=== PATIENT | female | born 1945 | race Caucasian/White ===

== ENCOUNTER → 2022-04-08 15:01 | Outpatient (BNVA) | payer MEDICARE, SELFPAY | PROVIDERS: Referring Provider Registered Nurse; Visit Provider Specialist | DX: M25.562 Pain in left knee (principal) | CPT/HCPCS: 73560; 73565; 99204 ==

== ENCOUNTER 2023-06-04 12:01 | Emergency (ER) | payer MEDICARE, SELFPAY ==
[2023-06-04 12:02] VITALS: BP 191/76; PULSE 64; RESP 17; TEMP 36.8; O2SAT 99
--- NOTE | 2023-06-04 12:06 | XR_ITS ---
WS: [id number] Portable AP upright chest, 06/04/2023 Clinical Data: Chest pain Comparison: None. Findings: No nodules, masses or effusions are seen. The heart is enlarged. The pulmonary vascularity is not increased. No pneumonia or pneumothorax is seen. There are monitor leads on the chest wall. Impression: Cardiomegaly.
--- NOTE | 2023-06-04 12:07 | ECG_ITS ---
[facility] Test Date: 2023-06-04 Pat Name: Elba Fowler Department: Room: Gender: Female Vocational Services Specialist: : 1945 Requested By: Ivet Amezcua Order Number: [id number] Juan M MD: Inocencio Gonzalez M.D. Measurements Intervals [place] Rate: 59 P: -36 [place]: 199 QRS: 150 QRSD: 92 T: 59 QT: 421 QTc: 419 Interpretive Statements SINUS BRADYCARDIA PATTERN CONSISTENT WITH PULMONARY DISEASE INCOMPLETE RIGHT BUNDLE BRANCH BLOCK [90+ ms QRS DURATION, TERMINAL R IN V1/V2, 40+ ms S IN I/aVL/V4/V5/V6] POSSIBLE RIGHT VENTRICULAR HYPERTROPHY [SOME/ALL OF: PROMINENT R IN V1, LATE TRANSITION, RAD, IVAN, SSS] No previous ECG available for comparison Electronically Signed On 06-04-2023 17:00:21 CDT by Inocencio Gonzalez M.D. [id number] f
--- NOTE | 2023-06-04 12:16 | ED_ITS ---
HPI - Chest Pain 2 General: Chief Complaint: Chest Pain Stated Complaint: chest pain Time Seen by Provider: 06/04/23 12:05 History of Present Illness: 77-year-old female with a history of hyp ertension, hyperlipidemia and anxiety who presents to the emergency room with chest pain/tightness. She says it started this morning. She was fairly hypertensive according to EMS. She had taken a clonidine at home and then received a couple of nitro on the ambulance. She describes a pressure in her left chest and under her left breast centrally. No cough. No lower extremity swelling. No shortness of breath. No altered mental status. No focal motor deficits. No abdominal pain. No nausea or vomiting. Review of Systems 2 Narrative: Constitutional symptoms: Negative except as documented in HPI. Skin symptoms: Negative except as documented in HPI. Eye symptoms: Negative except as documented in HPI. ENMT symptoms: Negative except as documented in HPI. Respiratory symptoms: Negative except as documented in HPI. Cardiovascular symptoms: Negative except as documented in HPI. Gastrointestinal symptoms: Negative except as documented in HPI. Genitourinary symptoms: Negative except as documented in HPI. Musculoskeletal symptoms: Negative except as documented in HPI. Neurologic symptoms: Negative except as documented in HPI. Psychiatric symptoms: Negative except as documented in HPI. Endocrine symptoms: Negative except as documented in HPI. Physical Exam 2 Narrative: EXAM NARRATIVE: General: Alert, no acute distress. Skin: Warm, dry. Head: Normocephalic, atraumatic. Neck: Supple, trachea midline. Eye: Extraocular movements are intact. Ears, nose, mouth and throat: mucosa moist. Cardiovascular: Regular, Normal peripheral perfusion. Respiratory: Lungs are clear to auscultation, respirations are non-labored, breath sounds are equal, Symmetrical chest wall expansion. Gastrointestinal: Soft, Nontender, Non distended, Normal bowel sounds. Musculoskeletal: Normal ROM, no deformity. Neurological: Alert and oriented, No focal neurological deficit observed. Psychiatric: Cooperative, appropriate mood & affect. Course 2 Vital Signs: Vital signs: Vital Signs Temperature 98.2 F 06/04/23 12:02 Pulse Rate 64 06/04/23 12:02 Respiratory Rate 17 06/04/23 12:02 Blood Pressure 191/76 06/04/23 12:02 Pulse Oximetry 99 06/04/23 12:02 Oxygen Delivery Me thod Room Air 06/04/23 12:02 MDM - Chest Pain Medical Decision Making Differential diagnosis for patient with chest pain includes but is not limited to and based on the above HPI, review of systems and physical exam: Pneumonia. unstable angina. angina. Acute coronary syndrome / NH. Pulmonary embolism. Costochondritis / musculoskeletal. Pleurisy. Pericarditis. Esophageal spasm. Pancreatis. Cholecystitis. Workup: Lab work, chest X-ray and EKG ordered to evaluate, rule in and rule out above pathologies. Lab work is unremarkable. Serial cardiac markers are negative. Lab Review: Laboratory results were reviewed and interpreted by myself the emergency room physician. EKG: time 1207 am. rate 59 Sinus bradycardia, No ST-T changes, no ectopy, normal AK & QRS intervals, This was reviewed and interpreted by myself the ER physician at 1210 pm. EKG: Time 1439 PM rate 60. Heart rate has increased by 1 bpm. Normal sinus rhythm, No ST-T changes, no ectopy, normal AK & QRS intervals, This was reviewed and interpreted by myself the ER physician at 1445 PM. Chest x-ray: No acute process. No infiltrate. No pneumothorax. cardiomegaly. This was reviewed and interpreted by myself the ER physician. HEART Pathway for Early Discharge in Acute Chest Pain from [employer] on 06/04/2023 All calculations should be rechecked by clinician prior to use RESULT SUMMARY: 3 points HEART Pathway Score Low risk 0.9-1.7% 30-day MACE Repeat troponin at 3 hours and if negative, discharge home with outpatient follow-up. INPUTS: History ?> 0 = Slightly suspicious EKG ?> 0 = Normal Age ?> 2 = >=5 Risk factors ?> 1 = 1-2 risk factors Initial troponin ?> 0 = <=ormal limit Reexamination: Patient remained stable. She is now chest pain-free. No increased work of breathing. No altered mental status. Lab Data 06/04/23 12:13 06/04/23 12:13 Laboratory Results WBC 7.55 10^3/uL (3.29-11.43) 06/04/23 12:13 RBC 5.00 10^6/uL (3.85-5.65) 06/04/23 12:13 Hgb 14.60 g/dL (11.27-16.99) 06/04/23 12:13 Hct 44.7 % (36-47) 06/04/23 12:13 MCV 89.4 fl (85-98) 06/04/23 12:13 MCH 29.2 pg (27-33) 06/04/23 12:13 MCHC 32.7 g/dL (30-55) 06/04/23 12:13 RDW 14.3 % (12.1-15.1) 06/04/23 12:13 Plt Count 244 10^3/cmm (157-399) 06/04/23 12:13 MPV 9.7 fL (7.4-10.4) 06/04/23 12:13 Neut % (Auto) 66.8 % 06/04/23 12:13 Lymph % (Auto) 24.4 % 06/04/23 12:13 [place] % (Auto) 6.8 % 06/04/23 12:13 Eos % (Auto) 1.2 % 06/04/23 12:13 Baso % (Auto) 0.5 % 06/04/23 12:13 Neut # (Auto) 5.05 10^3/uL (1.8-7.7) 06/04/23 12:13 Lymph # (Auto) 1.8 10^3/uL (0.8-4.8) 06/04/23 12:13 [place] # (Auto) 0.5 10^3/uL (0.2-0.9) 06/04/23 12:13 Eos # (Auto) 0.1 10^3/uL (0.0-0.8) 06/04/23 12:13 Baso # (Auto) 0.0 10^3/uL (0.0-0.1) 06/04/23 12:13 Nucleated RBC % (auto) 0 % 06/04/23 12:13 Nucleated RBCs # 0.0 /100WBC 06/04/23 12:13 Sodium 139 mmol/L (136-145) 06/04/23 12:13 Potassium 4.1 mmol/L (3.5-5.1) 06/04/23 12:13 Chloride 105 mmol/L (98-107) 06/04/23 12:13 Carbon Dioxide 25 mmol/L (22-29) 06/04/23 12:13 Anion Gap 13.1 (5-19) 06/04/23 12:13 BUN 17 mg/dL (8-23) 06/04/23 12:13 Creatinine 0.3 mg/dL (0.5-0.9) L 06/04/23 12:13 GFR Calculation Not Reportable 06/04/23 12:13 Glucose 104 mg/dL (65-115) 06/04/23 12:13 Calculated Osmolality 290 mOsm/kg (285-295) 06/04/23 12:13 Calcium 9.7 mg/dL (8.5-10.5) 06/04/23 12:13 Total Bilirubin 0.5 mg/dL (0.15-1.2) 06/04/23 12:13 AST 17 U/L (0-32) 06/04/23 12:13 ALT 18 U/L (0-33) 06/04/23 12:13 Alkaline Phosphatase 72 U/L (35-105) 06/04/23 12:13 Troponin T Baseline 7 ng/L (0-10) 06/04/23 12:13 Troponin T 120 Minute 8.15 ng/L (0-10) 06/04/23 14:29 Delta Troponin T 1.15 ABS# (0-10) 06/04/23 14:29 Total Protein 6.3 g/dL (6.6-8.7) L 06/04/23 12:13 Albumin 4.2 g/dL (3.5-5.2) 06/04/23 12:13 Globulin 2.1 g/dL (1.3-4.6) 06/04/23 12:13 All radiology interpretation(s) finalized by discharge Other Data Assessment and plan: Accelerated hypertension Noncardiac chest pain - Discharged home - Discussed findings and plan with patient. Answered any questions. - All laboratory values were reviewed and interpreted personally by myself, the ER physician - All imaging was reviewed and interpreted personally by myself, the ER physician. - Evaluation and treatment of this problem were appropriate in the emergency setting Discharge Plan Discharge Patient Disposition: Home Clinical Impression: Atypical chest pain, Hypertension Condition: Stable Prescriptions: No Action alprazolam 0.25 mg tablet 0.25 mg PO DAILY PRN (Reason: Anxiety) atorvastatin 10 mg tablet 10 mg PO DAILY clonidine HCl 0.1 mg tablet 0.05 mg PO TID hydrochlorothiazide 25 mg tablet 25 mg PO DAILY lisinopril 40 mg tablet 40 mg PO DAILY hydralazine 25 mg tablet 25 mg PO TID triamcinolone acetonide 0.1 % cream 1 applic TOPICAL BID PRN (Reason: Skin Irritation) Miralax 17 gram/dose Powder See Rx Instructions .ROUTE .COMPLEX Rx Instructions: Mix 1 capful (17 g) in 8 ounces fluid and drink entire liquid daily as needed. Discharge Orders: Discharge ED (Routine); Ordered 06/04/23 Ordered By: Ivet France Referrals: KIM Baer, BIODIESEL OPERATIONS MANAGER [Primary Care Provider] - 4-7 days (You have been screened and evaluated and felt safe for discharge. Health conditions do change or evolve sometimes and as such it is important that you follow up with your Primary Doctor to be re checked, 3-5 days is a general good time frame for follow up. You are always welcome to return to the ED for re assessment if your symptoms are worsening or you have new concerns) Discharge Diet: Usual diet Discharge Activity: Resume usual activity Patient Instructions: Noncardiac Chest Pain (ED), Opioid Safety, Pain Management Coding Level of Care Code ED Clinical Operations Manager for Edwin Yepez
[2023-06-04 12:26] LABS: Basophils % 0.5 %; Eosinophils # 0.1 10^3/uL (0.0-0.8); Eosinophils % 1.2 %; Hematocrit 44.7 % (36-47); Lymphocytes # 1.8 10^3/uL (0.8-4.8); Lymphocytes % 24.4 %; Mean Corpuscular HGB Conc 32.7 g/dL (30-55); Mean Corpuscular Hemoglobin 29.2 pg (27-33); Mean Corpuscular Volume 89.4 fl (85-98); Mean Platelet Volume 9.7 fL (7.4-10.4); Monocytes # 0.5 10^3/uL (0.2-0.9); Monocytes % 6.8 %; Neutrophils # 5.05 10^3/uL (1.8-7.7); Neutrophils % 66.8 %; Nucleated Red Blood Cells % 0 %; Platelet Count 244 10^3/cmm (157-399); Red Cell Distribution Width 14.3 % (12.1-15.1); White Blood Count 7.55 10^3/uL (3.29-11.43)
[2023-06-04 12:44] LABS: Alanine Aminotransferase 18 U/L (0-33); Albumin Level 4.2 g/dL (3.5-5.2); Alkaline Phosphatase 72 U/L (35-105); Anion Gap 13.1 (5-19); Aspartate Amino Transferase 17 U/L (0-32); Blood Urea Nitrogen 17 mg/dL (8-23); Calcium 9.7 mg/dL (8.5-10.5); Carbon Dioxide 25 mmol/L (22-29); Chloride 105 mmol/L (98-107); Globulin 2.1 g/dL (1.3-4.6); Glucose 104 mg/dL (65-115); Osmolality Calculated 290 mOsm/kg (285-295); Potassium 4.1 mmol/L (3.5-5.1); Sodium 139 mmol/L (136-145); Total Bilirubin 0.5 mg/dL (0.15-1.2); Total Protein 6.3 g/dL (6.6-8.7)
[2023-06-04 12:45] LABS: Creatinine Clr Calc Pharmacy 63.2885; Troponin(5th) Baseline 7 ng/L (0-10)
--- NOTE | 2023-06-04 14:39 | ECG_ITS ---
[facility] Test Date: 2023-06-04 Pat Name: Elba Fowler Department: Room: Gender: Female Lab Support Service Tech: : 1945 Requested By: Ivet Amezcua Order Number: [id number] Juan M MD: Inocencio Gonzalez M.D. Measurements Intervals [place] Rate: 60 P: -7 [place]: 222 QRS: 164 QRSD: 94 T: 148 QT: 427 QTc: 427 Interpretive Statements SINUS RHYTHM WITH FIRST DEGREE AV BLOCK PATTERN CONSISTENT WITH PULMONARY DISEASE INCOMPLETE RIGHT BUNDLE BRANCH BLOCK [90+ ms QRS DURATION, TERMINAL R IN V1/V2, 40+ ms S IN I/aVL/V4/V5/V6] POSSIBLE RIGHT VENTRICULAR HYPERTROPHY [SOME/ALL OF: PROMINENT R IN V1, LATE TRANSITION, RAD, IVAN, SSS] Compared to ECG 06/04/2023 12:07:23 First degree AV block now present Sinus bradycardia no longer present Electronically Signed On 06-04-2023 17:04:37 CDT by Inocencio Gonzalez M.D. [id number]
[2023-06-04 15:00] LABS: Troponin 5 2HR 8.15 ng/L (0-10); Troponin 5 2HR Delta 1.15 ABS# (0-10)
[2023-06-04 15:55] VITALS: BP 218/75
[2023-06-04] MEDS: cloNIDine 0.1 mg Tablet 0.100000000000000006 MG PO (15:55)
== END 2023-06-04 16:51 | disposition home or self-care (01) ==
PROVIDERS: Emergency Provider Emergency Medicine; PCP Nurse Practitioner Family
DX: R07.89 Other chest pain (principal); I10 Essential (primary) hypertension; E78.5 Hyperlipidemia, unspecified
CPT/HCPCS: 36415; 71045; 80053; 84484; 85025; 93005; 99285

== ENCOUNTER 2023-06-10 22:58 | Emergency (ER) | payer MEDICARE, SELFPAY ==
[2023-06-10 22:59] VITALS: BP 191/77; PULSE 70; RESP 18; TEMP 36.6; O2SAT 95; BMI 32.4
--- NOTE | 2023-06-10 23:10 | ECG_ITS ---
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 Measurements Intervals [place] Rate: 71 P: -26 [place]: 202 QRS: 124 QRSD: 99 T: 44 QT: 409 QTc: 444 Interpretive Statements SINUS RHYTHM PATTERN CONSISTENT WITH PULMONARY DISEASE INCOMPLETE RIGHT BUNDLE BRANCH BLOCK [90+ ms QRS DURATION, TERMINAL R IN V1/V2, 40+ ms S IN I/aVL/V4/V5/V6] RIGHT VENTRICULAR HYPERTROPHY [SOME/ALL OF: PROMINENT R IN V1, LATE TRANSITION, RAD, IVAN, SSS] Compared to ECG 06/04/2023 14:39:03 First degree AV block no longer present Electronically Signed On 06-11-2023 16:58:45 CDT by Anjum Davis M.D. [id number] f
--- NOTE | 2023-06-10 23:10 | XRR_ITS ---
PROCEDURE INFORMATION: Exam: XR Chest Exam date and time: 06/10/2023 11:13 PM Age: 77 years old Clinical indication: Angina; Additional info: Cxp TECHNIQUE: Imaging protocol: Radiologic exam of the chest. Views: 1 view. COMPARISON: CR XR chest 1V portable [id number] 06/04/2023 12:36 PM FINDINGS: Lungs: Poor inspiratory effort with some crowding of pulmonary markings and possible accentuation of the apparent heart size. Interval appearance of mild right perihilar opacity which could represent atelectasis or pneumonia. Pleural spaces: Unremarkable. No pleural effusion. No pneumothorax. Heart/Mediastinum: Mild cardiomegaly. Bones/joints: Unremarkable. XR/XR chest 1V portable [id number] IMPRESSION: 1. Poor inspiratory effort with some crowding of pulmonary markings and possible accentuation of the apparent heart size. 2. Mild cardiomegaly. 3. Interval appearance of mild right perihilar opacity which could represent atelectasis or pneumonia.
--- NOTE | 2023-06-10 23:14 | ED_ITS ---
HPI - Chest Pain 2 General: Chief Complaint: Chest Pain Stated Complaint: Chest pain Time Seen by Provider: 06/10/23 23:09 History of Present Illness: 77-year-old female presents emergency de partment via EMS personnel. She states that she felt like she was having some epigastric and substernal chest pain that she states was a 2 out of 10. She states she was recently seen here in the emergency department and evaluated and discharged home and has a follow-up appointment. She states that approximately 1930 she took her nighttime medications and then at approximately 2030 started having some epigastric pain and increased anxiety. She does appear very nervous upon arrival to the emergency department. She states she also started having nausea approximately 1 hour after she took all of her medications. EMS personnel did provide her Zofran prior to arrival. She denies shortness of breath dizziness or lightheaded feeling. Associated symptoms: Reports nausea Review of Systems 2 General: Reports: 10 or more systems reviewed and unremarkable except in HPI and below Card: Reports: chest pain GI: Reports: nausea Psych: Reports: anxiety Physical Exam 2 Narrative: EXAM NARRATIVE: General: Alert, no acute distress. Skin: Warm, dry, Intact. Head: Normocephalic, atraumatic. Neck: Supple, trachea midline. Eye: Extraocular movements are intact. PERRLA Ears, nose, mouth and throat: mucosa moist. Cardiovascular: Regular, Normal peripheral perfusion. Respiratory: Lungs are clear to auscultation, respirations are non-labored, breath sounds are equal, Symmetrical chest wall expansion. Gastrointestinal: Soft, Nontender, Non distended, Normal bowel sounds. Musculoskeletal: Normal ROM, no deformity. Neurological: Alert and oriented, No focal neurological deficit observed. Psychiatric: Cooperative, anxious Course 2 Reevaluation(s): Reevaluation #1: Repeat evaluation the patient demonstrates complete resolution of her chest discomfort. She does appear much more calm since she received her by mouth Ativan. I did discuss the lack of significant laboratory findings as well as the negative radiographic exam. I did encourage her to follow-up with her primary care provider as previously advised. Time: 02:01 Vital Signs: Vital signs: Vital Signs Temperature 98 F 06/10/23 22:59 Pulse Rate 83 06/11/23 01:30 Respiratory Rate 18 06/11/23 01:30 Blood Pressure 136/71 06/11/23 01:30 Pulse Oximetry 94 06/11/23 01:30 MDM - Chest Pain Medical Decision Making Physical exam completed and documented, I will obtain serial cardiac enzymes, serial twelve-lead EKGs, chest x-ray, CBC, CMP, urinalysis, B-type natriuretic peptide, PT/PTT/INR, and a chest x-ray. I have reviewed previous and pertinent medical records for assist in obtaining beneficial medical information to improved the care and treatment of the patient. I will reevaluate in consider hospitalist consultation and cardiology consultation. Medical Records I reviewed the patient's medical records. Lab Data I reviewed the patient's lab results. 06/10/23 23:07 06/10/23 23:07 Radiology Impressions Chest X-Ray 06/10/23 23:10 IMPRESSION: 1. Poor inspiratory effort with some crowding of pulmonary markings and possible accentuation of the apparent heart size. 2. Mild cardiomegaly. 3. Interval appearance of mild right perihilar opacity which could represent atelectasis or pneumonia. Laboratory Results WBC 9.57 10^3/uL (3.29-11.43) 06/10/23 23:07 RBC 5.18 10^6/uL (3.85-5.65) 06/10/23 23:07 Hgb 14.90 g/dL (11.27-16.99) 06/10/23 23:07 Hct 45.2 % (36-47) 06/10/23 23:07 MCV 87.3 fl (85-98) 06/10/23 23:07 MCH 28.8 pg (27-33) 06/10/23 23:07 MCHC 33.0 g/dL (30-55) 06/10/23 23:07 RDW 14.3 % (12.1-15.1) 06/10/23 23:07 Plt Count 272 10^3/cmm (157-399) 06/10/23 23:07 MPV 10.5 fL (7.4-10.4) H 06/10/23 23:07 Neut % (Auto) 54.0 % 06/10/23 23:07 Lymph % (Auto) 34.8 % 06/10/23 23:07 [place] % (Auto) 8.0 % 06/10/23 23:07 Eos % (Auto) 2.3 % 06/10/23 23:07 Baso % (Auto) 0.4 % 06/10/23 23:07 Neut # (Auto) 5.16 10^3/uL (1.8-7.7) 06/10/23 23:07 Lymph # (Auto) 3.3 10^3/uL (0.8-4.8) 06/10/23 23:07 [place] # (Auto) 0.8 10^3/uL (0.2-0.9) 06/10/23 23:07 Eos # (Auto) 0.2 10^3/uL (0.0-0.8) 06/10/23 23:07 Baso # (Auto) 0.0 10^3/uL (0.0-0.1) 06/10/23 23:07 Nucleated RBC % (auto) 0 % 06/10/23 23:07 Nucleated RBCs # 0.0 /100WBC 06/10/23 23:07 PT 13.00 SECONDS (12.1-14.9) 06/10/23 23:27 INR 0.96 (0.8-1.2) 06/10/23 23:27 Sodium 140 mmol/L (136-145) 06/10/23 23:07 Potassium 4.1 mmol/L (3.5-5.1) 06/10/23 23:07 Chloride 103 mmol/L (98-107) 06/10/23 23:07 Carbon Dioxide 24 mmol/L (22-29) 06/10/23 23:07 Anion Gap 17.1 (5-19) 06/10/23 23:07 BUN 24 mg/dL (8-23) H 06/10/23 23:07 Creatinine 0.5 mg/dL (0.5-0.9) 06/10/23 23:07 GFR Calculation Not Reportable 06/10/23 23:07 Glucose 91 mg/dL (65-115) 06/10/23 23:07 Calculated Osmolality 294 mOsm/kg (285-295) 06/10/23 23:07 Calcium 9.4 mg/dL (8.5-10.5) 06/10/23 23:07 Total Bilirubin 0.5 mg/dL (0.15-1.2) 06/10/23 23:07 AST 25 U/L (0-32) 06/10/23 23:07 ALT 21 U/L (0-33) 06/10/23 23:07 Alkaline Phosphatase 80 U/L (35-105) 06/10/23 23:07 Troponin T Baseline 8 ng/L (0-10) 06/10/23 23:07 Troponin T 120 Minute 9.56 ng/L (0-10) 06/11/23 01:00 Delta Troponin T 1.56 ABS# (0-10) 06/11/23 01:00 NT-Pro-B Natriuret Pep 125 pg/mL (0-450) 06/10/23 23:07 Total Protein 6.7 g/dL (6.6-8.7) 06/10/23 23:07 Albumin 4.3 g/dL (3.5-5.2) 06/10/23 23:07 Globulin 2.4 g/dL (1.3-4.6) 06/10/23 23:07 All radiology interpretation(s) finalized by discharge EKG Data EKG 1: Interpretation: Twelve-lead EKG obtained at 2304 and reviewed at 2308 demonstrates sinus rhythm with a first-degree AV block with a [place] interval of 202, ventricular rate of 71 bpm, QRS duration 99, QT 409, QTc 431. No acute ischemia or infarction at present. EKG 2: Interpretation: Twelve-lead EKG obtained at 00 57 and reviewed at 0100 demonstrates sinus rhythm with a first-degree AV block, ventricular rate 84 bpm, [place] interval 222, QRS duration 90, QT 383, QTc 424, there is no ST elevation or depression to demonstrate acute ischemia or infarction at present. Discharge Plan Discharge Patient Disposition: Home Clinical Impression: Atypical chest pain, Anxiety Condition: Stable Prescriptions: No Action alprazolam 0.25 mg tablet 0.25 mg PO DAILY PRN (Reason: Anxiety) atorvastatin 10 mg tablet 10 mg PO DAILY clonidine HCl 0.1 mg tablet 0.05 mg PO TID hydrochlorothiazide 25 mg tablet 25 mg PO DAILY lisinopril 40 mg tablet 40 mg PO DAILY hydralazine 25 mg tablet 25 mg PO TID triamcinolone acetonide 0.1 % cream 1 applic TOPICAL BID PRN (Reason: Skin Irritation) Miralax 17 gram/dose Powder See Rx Instructions .ROUTE .COMPLEX Rx Instructions: Mix 1 capful (17 g) in 8 ounces fluid and drink entire liquid daily as needed. Discharge Orders: Discharge ED (Routine); Ordered 06/11/23 Ordered By: Kaushik López Referrals: KIM Baer, ICE GRINDER [Primary Care Provider] - Discharge Diet: Usual diet Discharge Activity: Resume usual activity Patient Instructions: Opioid Safety, Pain Management Activity Restrictions/Additional Instructions: Activity Restrictions/Additional Instructions: Thank you for choosing [facility] for your healthcare needs today. Please realize that you were seen in the Emergency Department and that we are providing you with an emergency medical screening exam and this may not be a complete and all inclusive of all the testing and or medical work-up that you may need to determine your ailment or severity of your illness. It is very important that you follow-up as instructed with your Primary care provider or Specialist for additional evaluation and to discuss your medical treatment plan. Coding Level of Care Code ED Glue Jointer Operator for Edwin Yepez
[2023-06-10 23:19] LABS: Basophils % 0.4 %; Eosinophils # 0.2 10^3/uL (0.0-0.8); Eosinophils % 2.3 %; Hematocrit 45.2 % (36-47); Lymphocytes # 3.3 10^3/uL (0.8-4.8); Lymphocytes % 34.8 %; Mean Corpuscular Hemoglobin 28.8 pg (27-33); Mean Corpuscular Volume 87.3 fl (85-98); Mean Platelet Volume 10.5 fL (7.4-10.4); Monocytes # 0.8 10^3/uL (0.2-0.9); Neutrophils # 5.16 10^3/uL (1.8-7.7); Nucleated Red Blood Cells % 0 %; Platelet Count 272 10^3/cmm (157-399); Red Blood Count 5.18 10^6/uL (3.85-5.65); Red Cell Distribution Width 14.3 % (12.1-15.1); White Blood Count 9.57 10^3/uL (3.29-11.43)
[2023-06-10] MEDS: nitroglycerin 1 gm/inch oint Pkt 1 INCH TOPICAL (23:21)
[2023-06-10] MEDS: LORazepam 1 mg Tablet PO (23:22)
[2023-06-10 23:30] VITALS: BP 143/96; PULSE 83; RESP 18; O2SAT 95
[2023-06-10 23:37] LABS: Troponin(5th) Baseline 8 ng/L (0-10)
[2023-06-10 23:43] LABS: INR 0.96 (0.8-1.2)
[2023-06-10 23:46] LABS: Albumin Level 4.3 g/dL (3.5-5.2); Alkaline Phosphatase 80 U/L (35-105); Blood Urea Nitrogen 24 mg/dL (8-23); Calcium 9.4 mg/dL (8.5-10.5); Carbon Dioxide 24 mmol/L (22-29); Chloride 103 mmol/L (98-107); Creatinine Clr Calc Pharmacy 61.2469; Globulin 2.4 g/dL (1.3-4.6); Glucose 91 mg/dL (65-115); NT Pro B Type Natriuretic Pept 125 pg/mL (0-450); Osmolality Calculated 294 mOsm/kg (285-295); Sodium 140 mmol/L (136-145); Total Bilirubin 0.5 mg/dL (0.15-1.2); Total Protein 6.7 g/dL (6.6-8.7)
[2023-06-10 23:47] LABS: Alanine Aminotransferase 21 U/L (0-33); Anion Gap 17.1 (5-19); Aspartate Amino Transferase 25 U/L (0-32); Potassium 4.1 mmol/L (3.5-5.1)
[2023-06-11 00:38] VITALS: BP 142/70; PULSE 84; RESP 18; O2SAT 92
[2023-06-11 01:07] VITALS: BP 125/57; PULSE 87; RESP 18; O2SAT 92
--- NOTE | 2023-06-11 01:10 | ECG_ITS ---
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 Measurements Intervals [place] Rate: 84 P: 79 [place]: 222 QRS: 147 QRSD: 90 T: 30 QT: 383 QTc: 455 Interpretive Statements SINUS RHYTHM WITH FIRST DEGREE AV BLOCK PATTERN CONSISTENT WITH PULMONARY DISEASE RIGHT VENTRICULAR HYPERTROPHY [SOME/ALL OF: PROMINENT R IN V1, LATE TRANSITION, RAD, IVAN, SSS] Compared to ECG 06/10/2023 23:04:50 First degree AV block now present Incomplete right bundle-branch block no longer present Electronically Signed On 06-11-2023 17:01:52 CDT by Anjum Davis M.D. [id number]
[2023-06-11 01:30] VITALS: BP 136/71; PULSE 83; RESP 18; O2SAT 94
[2023-06-11 01:33] LABS: Troponin 5 2HR 9.56 ng/L (0-10); Troponin 5 2HR Delta 1.56 ABS# (0-10)
[2023-06-11 02:03] VITALS: BP 123/52; PULSE 84; RESP 18; O2SAT 94
== END 2023-06-11 03:14 | disposition home or self-care (01) ==
PROVIDERS: Emergency Provider Internal Medicine; PCP Nurse Practitioner Family
DX: R07.89 Other chest pain (principal); F41.9 Anxiety disorder, unspecified; I44.0 Atrioventricular block, first degree
CPT/HCPCS: 71045; 80053; 83880; 84484; 85025; 85610; 93005; 99285